=== PATIENT | female | born 1975 | race Two or more races ===

== ENCOUNTER 2020-10-14 16:52 | Emergency (ER) | payer MEDICAID ==
[~2020-10-14] VITALS: Ht 154.9 cm; Wt 50.8 kg
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
[2020-10-14] MEDS ORDERED: ACETAMINOPHEN 325 MG TABLET PO ONE (17:00)
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
[2020-10-14] MEDS ORDERED: ACETAMINOPHEN 325 MG TABLET ONE (17:06)
--- NOTE | 2020-10-14 17:16 | NUR ---
PICKED UP BY KEE NOBLES VIA [facility] FOR CT SCAN
[2020-10-14] MEDS ORDERED: ARIP2TAB3 PO (18:48)
--- NOTE | 2020-10-14 19:01 | NUR ---
PATIENT IN BED ASLEEP, EASILY AROUSABLE BY VOICE. HOOKED TO MONITOR, WILL CONTINUE TO MONITOR ACCORDINGLY
--- NOTE | 2020-10-14 19:13 | NUR ---
REPORT GIVEN TO CAM BERRY FOR [facility]
--- NOTE | 2020-10-14 19:18 | NUR ---
pt remains in bed asleep. resting comfortably and easily arousable, [employer] officers waiting for ct results
--- NOTE | 2020-10-14 20:01 | NUR ---
Patient discharged to home in stable condition. Written and verbal after care instructions given. Patient verbalizes understanding of instruction.
[2020-10-14 20:22] VITALS: BP 119/78
== END 2020-10-14 20:22 | disposition home or self-care (01) ==
LOC: ER 16:55 → EDBD 16:55 → ER 20:22
DX: S00.11XA Contusion of right eyelid and periocular area, initial encounter (principal); S09.8XXA Other specified injuries of head, initial encounter; Z59.0 Homelessness; Z88.6 Allergy status to analgesic agent; Z79.899 Other long term (current) drug therapy; Y04.8XXA Assault by other bodily force, initial encounter; Y93.89 Activity, other specified; Y92.89 Other specified places as the place of occurrence of the external cause; Y99.8 Other external cause status
CPT/HCPCS: 70450-TC; 70486-TC

== ENCOUNTER 2021-12-19 12:21 | Emergency (ER) | payer SELFPAY ==
[~2021-12-19] VITALS: Ht 134.6 cm; Wt 56.2 kg
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
--- NOTE | 2021-12-19 12:28 | NUR ---
dr perez at bedside for blood draw.
--- NOTE | 2021-12-19 12:35 | NUR ---
[employer] at bedside talking to patient.
--- NOTE | 2021-12-19 15:07 | NUR ---
pt is medically cleared. stable vitals. discharged in stable condition.
[2021-12-19 15:08] VITALS: BP 125/60
== END 2021-12-19 15:08 | disposition home or self-care (01) ==
LOC: ER 12:30
DX: T76.21XA Adult sexual abuse, suspected, initial encounter (principal); F32.9 Major depressive disorder, single episode, unspecified; Z88.6 Allergy status to analgesic agent; Z59.00 Homelessness unspecified